=== PATIENT | male | born 2000 | race Hispanic/Latino ===

== ENCOUNTER 2019-10-09 20:34 | Emergency (ER) | payer OTHER, SELFPAY ==
[2019-10-09 20:40] VITALS: BP 125/58; PULSE 86; RESP 16; TEMP 36.2; O2SAT 96
--- NOTE | 2019-10-09 20:56 | ED.WOUNDLAC ---
HPI - Wound/Laceration General Chief Complaint: Wound/Laceration Stated Complaint: Laceration Time Seen by Provider: 10/09/19 20:53 Source: patient Mode of arrival: ambulatory Limitations: no limitations History of Present Illness HPI narrative: The pt is a 19 y/o male who presents to the ED c/o a laceration to the right eyebrow onset 1500. 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 He states that he stuck a crowbar under the floor and struck himself in the face with a board. He states that he is unsure of his last Tetanus. Pt notes that he occasionally smokes marijuana and cigarettes. Pt states that he does not have a PCP at this time. Onset (ago): hour(s) Location: face (Right eyebrow) Place: other (Boss' house) Context: accidental Associated symptoms: none Related Data Home Medications Medication Instructions Recorded Confirmed No Home Medications 10/09/19 10/09/19 Allergies Allergy/AdvReac Type Severity Reaction Status Date / Time No Known Allergies Allergy Verified 10/09/19 20:42 Review of Systems Review of Systems: All systems reviewed & are unremarkable except as noted in HPI and below Integumentary/Breasts: Skin/Breast: Reports other (Laceration to the right eyebrow) PMFSH Past Medical History Medical History (Updated 10/09/19 @ 22:39 by Cristina Pizarro MD) No significant past medical history Surgical History Surgical History (Updated 10/09/19 @ 20:58 by Raz Grimaldo) No history of previous surgery Social History Social History (Updated 10/09/19 @ 20:58 by Raz Grimaldo) Smoking status: Current some day smoker Substance use type: marijuana Exam Const: General: cooperative, no acute distress and alert Nutritional Appearance: well nourished Orientation/consciousness: patient oriented x3 Limitations: no limitations Eyes: Pupils: Equal, round and reactive pupils present Resp: Effort & Inspection: normal respiratory effort Skin: General skin exam: normal color Trauma: laceration (1 cm right eyebrow laceration with no bleeding) Neuro: General: patient oriented x3 Cognition (Neuro): normal cognition Speech: normal speech Extrem: General: normal to inspection, full ROM and no clubbing, cyanosis or edema Psych: Mental Status: mental status grossly normal Affect: normal affect Attitude: cooperative Course Course Emergency Course: Tetanus shot updated. Laceration repaired. Vital Signs Vital signs: Vital Signs Temperature 97.2 F L 10/09/19 20:40 Pulse Rate 86 10/09/19 20:40 Respiratory Rate 16 10/09/19 20:40 Blood Pressure 125/58 L 10/09/19 20:40 Pulse Oximetry 96 10/09/19 20:40 Temperature 97.2 F L 10/09/19 20:40 Pulse Rate 86 10/09/19 20:40 Respiratory Rate 16 10/09/19 20:40 Blood Pressure 125/58 L 10/09/19 20:40 Pulse Oximetry 96 10/09/19 20:40 Procedures Laceration Laceration 1: Site: face (Right eyebrow) Side (If applicable): right Size (cm): 1 Description: linear and clean Depth: simple, single layer Local Anesthetic: lidocaine 1% and with epi Pre-repair: irrigated ====== Skin Level ====== Skin layer closed with: prolene Size (cm): 5-0 Number of sutures: 3 Technique: simple, interrupted ====== Subcutaneous Layer ====== ====== Muscle Layer ====== ====== Tendon Layer ====== Critical Care Time Critical Care Time Critical Care Time: No Discharge Plan Discharge Clinical Impression: Laceration of right eyebrow Qualifiers: Encounter type: initial encounter Qualified Code(s): S01.111A - Laceration without foreign body of right eyelid and periocular area, initial encounter Patient Disposition: Home, Self-Care Condition: Stable Instructions: Care For Your Stitches (ED), Laceration (ED) Additional Instructions: Keep wound clean and dry. Do not soak wound, take baths, or swim
[2019-10-09] MEDS: TETANUS,DIPHTHERIA,AC PERTUSSIS ADULT 0.5 ML (ADACEL) IM (21:56)
== END 2019-10-09 22:50 | disposition home or self-care (01) ==
PROVIDERS: Emergency Provider Emergency Medicine
DX: S01.111A Laceration without foreign body of right eyelid and periocular area, initial encounter (principal); Z23 Encounter for immunization; F17.200 Nicotine dependence, unspecified, uncomplicated; W27.0XXA Contact with workbench tool, initial encounter
CPT/HCPCS: 12011; 90471; 90715; 99282

== ENCOUNTER 2020-07-29 09:38 | Emergency (ER) | payer OTHER, SELFPAY ==
--- NOTE | 2020-07-29 09:44 | ED.MALEGU ---
HPI - Male Genitourinary General Chief complaint: Urogenital-Male Stated complaint: POS UTI Time Seen by Provider: 07/29/20 09:44 Source: patient and RN notes reviewed History of Present Illness HPI Narrative: Patient is a 20-year-old male who presents the urgent care with complaints of a possible UTI. Patient states his symptoms started yesterday while he was at work. States that he felt like he really had to use the bathroom, had a lot of urinary frequency, and then felt like he was unable to urinate. Patient states that he has had some suprapubic pressure as well as a lot of burning with urination. Denies of any history of UTIs. Denies of any promiscuous activity that may suggest reason for STI. Denies of any penile discharge. Denies of fever, chills, nausea, vomiting, diarrhea. States that he did take Azo for his symptoms which seem to relieve some of the burning. No other acute complaints. No acute distress noted. Patient aware of the plan of care. Some parts of this dictation were generated by voice recognition software and may contain typographical and/or grammatical inaccuracies. Related Data Home Medications Medication Instructions Recorded Confirmed No Home Medications 10/09/19 10/09/19 Allergies Allergy/AdvReac Type Severity Reaction Status Date / Time No Known Allergies Allergy Verified 10/09/19 20:42 Review of Systems Review of Systems: Narrative: CONSTITUTIONAL: Denies fever, chills, or sweats. EYES: Denies visual changes, redness, or discharge. ENT: Denies rhinorrhea, congestion, sore throat, or otalgia. CARDIOVASCULAR: Denies chest pain, palpitations, or edema. RESPIRATORY: Denies cough or dyspnea. GASTROINTESTINAL: Denies abdominal pain, nausea, vomiting, or diarrhea. GENITOURINARY: Reports of dysuria, suprapubic pressure and urinary frequency SKIN: Denies rash or itching. MUSCULOSKELETAL: Denies back pain, joint pain, or myalgia. NEUROLOGIC: Denies headache, numbness, or weakness. All other systems reviewed are negative, except as documented in HPI. [facility] Past Medical History Medical History (Updated 07/29/20 @ 10:18 by BRIGHT Escobedo) No significant past medical history Surgical History Surgical History (Updated 10/09/19 @ 20:58 by Raz Grimaldo) No history of previous surgery Social History Social History (Updated 10/09/19 @ 20:58 by Raz Grimaldo) Smoking status: Current some day smoker Substance use type: marijuana Comments At the time of my signature, I reviewed and agree with the nursing past medical, surgical, social, and family history. There is no relevant family history pertinent to the patient complaint. Exam Narrative: Exam Narrative: GENERAL: This is a well-nourished, well-developed patient, in no apparent distress. HEAD: normocephalic, atraumatic. EYES: PERRL. Sclera clear/white. Vision is grossly intact. EARS: External ears normal NOSE: External nose normal with no obvious nasal discharge, nares without redness, no rhinorrhea. THROAT: Mucous membranes moist NECK: Neck supple GASTROINTESTINAL: Abdomen soft, non-tender, nondistended. SKIN: warm, intact with no suspicious lesions or rash, good texture and turgor. NEURO: awake, alert, and oriented to person, place and time. There were no obvious focal neurologic abnormalities. EXTREMITIES: No clubbing, cyanosis, or edema. BACK: Negative bilateral CVA tenderness Course Vital Signs Vital signs: Vital Signs Temperature 99.7 F H 07/29/20 09:50 Pulse Rate 75 07/29/20 09:50 Respiratory Rate 16 07/29/20 09:50 Blood Pressure 129/59 L 07/29/20 09:50 Pulse Oximetry 100 07/29/20 09:50 Temperature 99.7 F H 07/29/20 09:50 Pulse Rate 75 07/29/20 09:50 Respiratory Rate 16 07/29/20 09:50 Blood Pressure 129/59 L 07/29/20 09:50 Pulse Oximetry 100 07/29/20 09:50 Reviewed MDM - Male Genitourinary MDM Narrative Medical decision making narrative: Reviewed lab results
[2020-07-29 09:50] VITALS: BP 129/59; PULSE 75; RESP 16; TEMP 37.6; O2SAT 100
== END 2020-07-29 10:15 | disposition home or self-care (01) ==
PROVIDERS: Emergency Provider Nurse Practitioner Family
DX: R30.0 Dysuria (principal); F17.200 Nicotine dependence, unspecified, uncomplicated
CPT/HCPCS: 81003; 87491; 87591; 87661; 99213; G0463

== ENCOUNTER 2021-03-25 14:02 | Emergency (ER) | payer OTHER, SELFPAY ==
--- NOTE | ~2021-03-25 | XR_ITS ---
[XR_[id number] ] INDICATION: Right rib pain. TECHNIQUE: Frontal projection of the upper right ribs, frontal projection of the lower right ribs, ob lique projection of all the right ribs, frontal inspiratory chest x-ray for interpretation. FINDINGS: There are no displaced rib fractures identified. There are no soft tissue abnormality see n. The lungs are clear. IMPRESSION: 1:No displaced rib fractures. Reviewed, dictated and finalized at location A.
[2021-03-25 14:19] VITALS: BP 108/73; PULSE 66; RESP 16; TEMP 36.7; O2SAT 100
--- NOTE | 2021-03-25 15:29 | ED.ABDPAIN ---
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 Patient notes about a 1 to 2-day worsening 1 to 2-week history of right lower rib/RUQ abdominal discomfort. He recalls that the area was bruised at onset several weeks ago, yet can't remember specific event, stating' may been drinking'. It is worse with motion, palpation and better at rest. 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 Screening dip urine, and x-rays are noncontributory. Advised to follow-up in hospital, PMD for higher level testing if not improved Related Data Allergies Allergy/AdvReac Type Severity Reaction Status Date / Time No Known Allergies Allergy Verified 03/25/21 14:18 Review of Systems Review of Systems: General/Constitutional: No weight loss,fever Eyes: N0: Redness,discharge Ears/Nose/Throat: No: Epistaxis,ear discharge Respiratory: Denies: Hemoptysis Gastrointestinal: No Vomiting, Bleeding-rectal Skin: No Lumps, eruption Neurologic: No Focal Weakness,Sz Hematologic: Denies: Petechiae/Purpura Psychiatric: No: Suicida ideationl All Other Systems: Reviewed and Negative [facility] Past Medical History Medical History (Updated 03/25/21 @ 15:32 by Daren Ward MD) No significant past medical history Surgical History Surgical History (Updated 10/09/19 @ 20:58 by Raz Grimaldo) No history of previous surgery Social History Social History (Updated 10/09/19 @ 20:58 by Raz Grimaldo) Smoking status: Current some day smoker Substance use type: marijuana Comments At time of signature, agree with nursing past medical, surgical, social and family history. There is no relevant family history pertinent to the presenting complaint Exam Narrative: General Appearance: Well appearing,Conjunctiva clear Mouth/Throat: Normal appearing, Normal lips,: Supple Respiratory: Airway patent, No respiratory distress, CTA Cardiovascular: RRR, point tender right ribs T10-12 on the anterior midaxillary line Abdomen: Soft, Non-tender, No massess, No organomegaly (no rebound/ surgical signs), Hyperactive bowel sounds Musculoskeletal: Full ROM Skin: Warm, Dry Neurological: A&O x3, CN II-X intact Psychiatric: Normal mood, Normal affect Course Course Emergency Course: Films visualized, interpreted by radiologist, agree, normal see report Vital Signs Vital signs: Vital Signs Temperature 98.0 F 03/25/21 14:19 Pulse Rate 66 03/25/21 14:19 Respiratory Rate 16 03/25/21 14:19 Blood Pressure 108/73 03/25/21 14:19 Pulse Oximetry 100 03/25/21 14:19 Temperature 98.0 F 03/25/21 14:19 Pulse Rate 66 03/25/21 14:19 Respiratory Rate 16 03/25/21 14:19 Blood Pressure 108/73 03/25/21 14:19 Pulse Oximetry 100 03/25/21 14:19 MDM - Abdominal Pain Lab Data Labs: Urine Glucose Negative Reference Range: Negative Urine Bilirubin 1+ Reference Range: Negative Urine Ketone Negative Reference Range: Negative Urine Specific [place] 1.025 Reference Range:1.001-1.035 Urine Blood Negative Reference Range: Negative * * Urine pH 7.0 Reference Range: 5.0-9.0 Urine Protein Negative Reference Range: Negat
== END 2021-03-25 15:38 | disposition home or self-care (01) ==
PROVIDERS: Emergency Provider Emergency Medicine
DX: R07.89 Other chest pain (principal); F17.200 Nicotine dependence, unspecified, uncomplicated
CPT/HCPCS: 71101; 81003; 99213; G0463

== ENCOUNTER 2021-03-30 08:56 | Emergency (ER) | payer OTHER, SELFPAY ==
[2021-03-30] VITALS (8 sets, daily range): BP systolic 110–113; BP diastolic 60–68; PULSE 49–61; RESP 12–19; TEMP 36.8; O2SAT 98–100
--- NOTE | ~2021-03-30 | CT_ITS ---
EXAMINATION: CT abdomen pelvis w con EXAM DATE: 03/30/2021 10:51 INDICATION: Right upper quadrant pain. Positive Wilson's sign. TECHNIQUE: Spiral CT of the abdomen and pelvis was performed following intravenous injection of 100 m L Omnipaque 350. Axial, coronal and sagittal images of the abdomen and pelvis were reviewed. The do se-length product (DLP) for this examination was 225.87 mGy-cm. The exposure was tailored according to patient size (auto mA exposure control), and iterative reconstruction (ASIR) was used as additiona l dose reduction technique. Correlation is made to ultrasound earlier same date. FINDINGS: The liver, spleen, adrenal glands and pancreas are unremarkable. Gallbladder is unremarkab le. No biliary obstruction. Portal and splenic veins are patent. Kidneys enhance symmetrically. T here is no hydronephrosis. The prostate is unremarkable. The bladder is unremarkable. There is no retroperitoneal or pelvic lymphadenopathy. The appendix is normal. The stomach and small bowel are unremarkable. There is expected amount of c olonic stool. No free intraperitoneal gas. The heart is normal in size. There are no pericardial or pleural effusions. The lung bases are unremarkable. The bones are unremarkable. IMPRESSION: 1. No acute intra-abdominal findings. Reviewed, dictated and finalized at location B.
--- NOTE | ~2021-03-30 | US_ITS ---
EXAMINATION: US abdomen limited DATE: 03/30/2021 09:57 INDICATION: Right upper quadrant abdominal pain TECHNIQUE: Multiple grayscale and Doppler ultrasound images of the abdomen were obtained. COMPARISON: None FINDINGS: Pancreas is normal. Liver has normal echogenicity and contour, with a smooth surface. No liver lesion identified. No intrahepatic biliary duct dilation suspected. Portal venous flow was seen in the hepa topetal, normal direction and has normal Doppler waveform. The visualized proximal to mid inferior ve na cava is normal. Likely benign nonmobile 4 mm hypoechoic gallbladder polyp along the nondependent g allbladder wall. The gallbladder is otherwise normal in appearance. There is no shadowing cholelithi asis. The common bile duct measures 4 mm, which is normal. Sonographic Wilson sign was reported as po sitive by the travel [employer]. IMPRESSION: 1. Positive sonographic Wilson's sign without evident gallbladder wall thickening or cholelithiasis t o suggest acute cholecystitis. There is continued clinical concern for acute cholecystitis could cons ider HIDA scan for further evaluation. Reviewed, dictated and finalized at location A. IMPRESSION: 1. Positive sonographic Wilson's sign without evident gallbladder wall thickeni ng or cholelithiasis to suggest acute cholecystitis. There is continued clinica l concern for acute cholecystitis could consider HIDA scan for further evaluati on.
[2021-03-30 09:44] LABS: Basophils Absolute Auto 0.1 K/mm3 (0.0-0.1); Basophils Percent Auto 0.7 % (0.2-1.2); Eosinophils Absolute Auto 0.4 K/mm3 (0-0.3); Eosinophils Percent Auto 6.4 % (0-4.4); Hematocrit 44.3 % (42.0-52.0); Hemoglobin 15.1 g/dL (14.0-18.0); Immature Granulocyte Absolute 0.02 K/mm3 (0.00-0.031); Immature Granulocyte Percent A 0.3 % (0-0.5); Lymphocytes Absolute Auto 3.39 K/mm3 (0.9-3.2); Lymphocytes Percent Auto 50.4 % (18.3-44.2); Mean Corpuscular HGB Conc 34.1 g/dl (32-36); Mean Corpuscular Hemoglobin 30.8 pg (26-34); Mean Corpuscular Volume 90.2 fl (80-100); Mean Platelet Volume 10.1 fl (7.4-10.4); Monocytes Absolute Auto 0.5 K/mm3 (0.1-0.6); Neutrophils Absolute Auto 2.4 K/mm3 (1.3-6.7); Neutrophils Percent Auto 35.2 % (45.5-73.1); Platelet Count Result 187 k/mm3 (150-375); Red Blood Count 4.91 M/mm3 (4.6-6.20); Red Cell Distribution Width 12.1 % (11.5-14.5); White Blood Count 6.7 K/mm3 (4.5-10.0)
[2021-03-30 10:00] LABS: Alanine Aminotransferase 14 U/L (4-50); Albumin Level 3.9 g/dL (3.5-5.1); Alkaline Phosphatase 36 U/L (38-126); Anion Gap 3 mmol/L (8-16); Aspartate Amino Transferase 19 U/L (17-59); Bilirubin,Total 0.2 mg/dL (0.2-1.3); Blood Urea Nitrogen 13 mg/dL (9-20); Calcium 9.1 mg/dL (8.4-10.2); Carbon Dioxide 35 mmol/L (22-30); Chloride 100 mmol/L (98-107); Estimated CRCL calculation 122 ml/min; Estimated Glomerular Filt Rate > 60; Glucose 89 mg/dL (65-110); Lipase 169 U/L (23-300); Potassium 4.3 mmol/L (3.4-5.0); Sodium 138 mmol/L (137-145)
--- NOTE | 2021-03-30 10:13 | ED.GENADULT ---
HPI - General Adult General Chief complaint: Abdominal Pain Stated complaint: rt rib pain Time Seen by Provider: 03/30/21 09:12 Source: patient Mode of arrival: ambulatory Limitations: no limitations History of Present Illness HPI narrative: Patient presents with chief complaint of right upper quadrant abdominal pain that has been increasing over the past 2 weeks. He states that whenever he eats he feels nauseous and has worsening pain. Patient states that he has only been able to eat ice cream over the past 2 days because the symptoms of everything goes triggers worsening of his symptoms. Patient denies any fevers, vomiting, diarrhea, black or tarry stools. Patient denies any fever, shortness of breath, chest pain. Patient states that he drinks alcohol but has not drinking alcohol since Saturday. Patient denies known past gallbladder issues. He denies any abdominal surgeries. Patient denies any chronic medical conditions or daily medications. Related Data Allergies Allergy/AdvReac Type Severity Reaction Status Date / Time No Known Allergies Allergy Verified 03/25/21 14:18 Review of Systems Review of Systems: CONSTITUTIONAL: Denies fever, chills, or sweats. EYES: Denies visual changes, redness, or discharge. ENT: Denies rhinorrhea, congestion, sore throat, or otalgia. CARDIOVASCULAR: Denies chest pain, palpitations, or edema. RESPIRATORY: Denies cough or dyspnea. GASTROINTESTINAL: Reports right upper quadrant abdominal pain, nausea denies vomiting or diarrhea. GENITOURINARY: Denies dysuria or hematuria. SKIN: Denies rash or itching. MUSCULOSKELETAL: Denies back pain, joint pain, or myalgia. NEUROLOGIC: Denies headache, numbness, dizziness, or weakness. PSYCHIATRIC: Denies anxiety or depression. PMFSH Past Medical History Medical History (Updated 03/30/21 @ 12:40 by Leroy Chen PA-C) No significant past medical history Surgical History Surgical History (Updated 10/09/19 @ 20:58 by Raz Grimaldo) No history of previous surgery Social History Social History (Updated 10/09/19 @ 20:58 by Raz Grimaldo) Smoking status: Current some day smoker Substance use type: marijuana Exam Narrative: GENERAL: Well-appearing, well-nourished, and in no acute distress. HEAD: Normocephalic, atraumatic. EYES: PERRLA and EOMI. CHEST: Clear to auscultation. No respiratory distress. No wheezes rales or rhonchi HEART: Regular rate and rhythm. No murmur heard. Normal peripheral pulses. ABDOMEN: Soft, guarding and very tender to palpation to right upper quadrant. nondistended, normal active bowel sounds. EXTREMITIES: Normal range of motion. No edema. SKIN: Warm, dry, no rash. NEURO: No focal deficits. Alert and oriented x3. PSYCH: Normal mood and affect. Course Vital Signs Vital signs: Vital Signs Pulse Rate 60 03/30/21 09:13 Respiratory Rate 12 03/30/21 09:13 Pulse Oximetry 100 03/30/21 09:13 Temperature 98.3 F 03/30/21 09:22 Pulse Rate 61 03/30/21 09:30 Respiratory Rate 19 03/30/21 09:30 Blood Pressure 110/60 03/30/21 09:22 Pulse Oximetry 98 03/30/21 09:59 Medical Decision Making MDM Narrative Medical decision making narrative: Patient has not had vomiting, fever or unmanageable pain while in emergency department. CT and ultrasound are negative. I have offered to contact his primary care to discuss his symptoms and suggestion of HIDA scan outpatient however he does not want to wait and would like to be discharged home. Patient has been instructed to tailor his diet to avoid fatty greasy and spicy foods and triggers. He will be given anti-inflammatory and Zofran. Patient instructed not to drink alcohol as well. Patient strict to return to emergency department immediately if he has any emergent symptoms. Vital Signs Vital Signs: Vital Signs Pulse Rate 60 03/30/21 09:13 Respiratory Rate 12 03/30/21 09:13 Pulse Oximetry 100 03/30/21 09:13 Temperature 98.3
[2021-03-30 10:15] LABS: Add Urine Microscopic? YES; Appearance Urine Clear (Clear); Bilirubin Urine Negative (Negative); Blood Urine Negative (Negative); Color Urine Yellow (Yellow); Glucose Urine UA Negative (Negative); Ketones Urine Negative (Negative); Leukocyte Esterase Ur Trace LEU/UL (Negative); Mucus Urine Rare /lpf; Nitrate Urine Negative (Negative); Protein Urine Negative (Negative); RBC Urine 0-2 /hpf (0-2); Specific Grav Ur 1.019 (1.001-1.035); Urobilinogen Urine Negative mg/dL (<2.0)
[2021-03-30] MEDS: ONDANSETRON INJ 4 MG/2 ML VIAL IV PUSH (10:27)
[2021-03-30] MEDS: KETOROLAC 15 MG/ML VIAL (*BKC) IV PUSH (10:27)
== END 2021-03-30 14:22 | disposition home or self-care (01) ==
PROVIDERS: Physician Assistant; Emergency Provider Emergency Medicine; PCP Nurse Practitioner Family
DX: R10.11 Right upper quadrant pain (principal); F17.200 Nicotine dependence, unspecified, uncomplicated
CPT/HCPCS: 36415; 74177; 76705; 80053; 81001; 83690; 85025; 87086; 96374; 96375; 99284; J1885; J2405; Q9967

== ENCOUNTER 2021-05-10 06:33 | Outpatient (CLI) | payer OTHER, SELFPAY ==
--- NOTE | ~2021-05-10 | NM_ITS ---
EXAMINATION: NM hepatobiliary wo pharm DATE: 05/10/2021 09:18 INDICATION: Right upper quadrant abdominal pain. COMPARISON: CT abdomen and pelvis 03/30/2021, ultrasound 03/30/2021 TECHNIQUE: 4.9 mCi Tc-99m mebrofenin (Choletec) was administered intravenously. Scintigraphic images of the abdomen were obtained for one hour. Then, the patient drank 8 oz Ensure, and imaging was cont inued for 60 minutes. FINDINGS: There is normal clearance of radiotracer from the blood pool. There is homogeneous tracer u ptake by the liver. Activity progresses to the bowel and gallbladder. Gallbladder ejection fraction (GBEF) was 47%. Note that with this technique, normal GBEF >= 33%. IMPRESSION: 1. Normal hepatobiliary scintigraphy. Reviewed, dictated and finalized at location A.
== END 2021-05-10 06:34 | disposition home or self-care (01) ==
LOC: ANHIMG 06:34
PROVIDERS: PCP Nurse Practitioner Family; Visit Provider Nurse Practitioner Family
DX: R10.11 Right upper quadrant pain (principal)
CPT/HCPCS: 78226; A9537

== ENCOUNTER 2021-11-28 09:24 | Emergency (ER) | payer BC, SELFPAY ==
--- NOTE | 2021-11-28 10:14 | PC.NURSE ---
Pt not answering for triage x 2 - no answer at 0950 and no answer at 1014. Pt did not notify an RN of departure from ER. Pt has not been triaged at time of exit or seen leaving.
== END 2021-11-28 10:25 | disposition left against medical advice (07) ==
DX: Z53.21 Procedure and treatment not carried out due to patient leaving prior to being seen by health care provider (principal)
CPT/HCPCS: 99199

== ENCOUNTER 2021-11-28 10:08 | Emergency (ER) | payer BC, SELFPAY ==
--- NOTE | ~2021-11-28 | XR_ITS ---
EXAMINATION: XR_[id number]_CR DATE: 11/28/2021 10:39 INDICATION: Right lower rib pain. TECHNIQUE: A frontal view of the chest and 2 views on 3 radiographs of the right ribs were obtained. COMPARISON: Chest and right rib radiographs 03/25/2021, CT abdomen and pelvis 03/30/2021 FINDINGS: The chest demonstrates clear lungs without pneumonia, pleural effusion, or pneumothorax. Th e heart size is normal. There is heterotopic ossification of the right inferior costal cartilage, new from 03/30/2021, likely from old injury. IMPRESSION: 1. No rib fracture. 2. 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 Reviewed, dictated and finalized at location B. IMPRESSION: 1. No rib fracture. 2. 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
--- NOTE | ~2021-11-28 | XR_ITS ---
EXAMINATION: XR abdomen/kub 1V DATE: 11/28/2021 10:38 INDICATION: Constipation. TECHNIQUE: A supine view of the abdomen was obtained. COMPARISON: CT abdomen and pelvis 03/30/2021 FINDINGS: There are no dilated loops of bowel. There is a small volume of stool in the colon. IMPRESSION: 1. Normal bowel gas pattern. Reviewed, dictated and finalized at location B.
[2021-11-28 10:14] VITALS: BP 131/85; PULSE 71; RESP 16; TEMP 36.4; O2SAT 100
[2021-11-28 10:19] VITALS: BP 131/85; PULSE 71; RESP 16; TEMP 36.4; O2SAT 100
--- NOTE | 2021-11-28 10:19 | ED.ABDPAIN ---
HPI - Abdominal Pain General Chief Complaint: Abdominal Pain Stated Complaint: R SIDED ABD PAIN Time Seen by Provider: 11/28/21 10:10 Source: patient and RN notes reviewed History of Present Illness HPI narrative: Patient is a 21-year-old male who presents the urgent care with complaints of right abdominal pain. Patient was seen at the emergency room in March for the same complaint and had a complete work-up with a negative abdominal CT and HIDA scan. Patient states he does not notice any exacerbation of pain with eating. Patient states that he has increased pain with movement. Denies of any injury to the chest wall. Patient has not taken anything [id number] for his pain. Patient states he also notices on some increased urinary frequency and constipation. Patient states he vomits approximately 3 times per day. Currently denies of any nausea. No other acute complaints. No acute distress noted. Patient aware of the plan of care. Some parts of this dictation were generated by voice recognition software and may contain typographical and/or grammatical inaccuracies. Related Data Allergies Allergy/AdvReac Type Severity Reaction Status Date / Time No Known Allergies Allergy Verified 03/25/21 14:18 Review of Systems Review of Systems: CONSTITUTIONAL: Denies fever, chills, or sweats. EYES: Denies visual changes, redness, or discharge. ENT: Denies rhinorrhea, congestion, sore throat, or otalgia. CARDIOVASCULAR: Denies chest pain, palpitations, or edema. RESPIRATORY: Denies cough or dyspnea. GASTROINTESTINAL: Reports of vomiting, constipation, and right-sided abdominal pain GENITOURINARY: Reports of increased urinary frequency SKIN: Denies rash or itching. MUSCULOSKELETAL: Denies back pain, joint pain, or myalgia. NEUROLOGIC: Denies headache, numbness, or weakness. All other systems reviewed are negative, except as documented in HPI. [facility] Past Medical History Medical History (Updated 11/28/21 @ 11:05 by BRIGHT Escobedo) No significant past medical history Surgical History Surgical History (Updated 10/09/19 @ 20:58 by Raz Grimaldo) No history of previous surgery Social History Social History (Updated 10/09/19 @ 20:58 by Raz Grimaldo) Smoking status: Current some day smoker Substance use type: marijuana Comments At the time of my signature, I reviewed and agree with the nursing past medical, surgical, social, and family history. There is no relevant family history pertinent to the patient complaint. Exam Narrative: GENERAL: This is a well-nourished, well-developed patient, in no apparent distress. HEAD: normocephalic, atraumatic. EYES: PERRL. Sclera clear/white. Vision is grossly intact. EARS: External ears normal NOSE: External nose normal with no obvious nasal discharge, nares without redness, no rhinorrhea. THROAT: Mucous membranes moist NECK: Neck supple CARDIOVASCULAR: Regular rate and rhythm without murmurs, gallops, or rubs. RESPIRATORY: Lateral right chest tenderness, thoracic rib region. Clear to auscultation. Breath sounds equal bilaterally. No wheezes, rales, or rhonchi. GASTROINTESTINAL: Abdomen soft, diffuse abdominal tenderness more concentrated to the right upper and lower quadrant, nondistended. Bowel sounds are hypoactive. SKIN: warm, intact with no suspicious lesions or rash, good texture and turgor. NEURO: awake, alert, and oriented to person, place and time. There were no obvious focal neurologic abnormalities. EXTREMITIES: No clubbing, cyanosis, or edema. Course Course Level of Care: Express Care Visit Vital Signs Vital signs: Vital Signs Temperature 97.6 F 11/28/21 10:14 Pulse Rate 71 11/28/21 10:14 Respiratory Rate 16 11/28/21 10:14 Blood Pressure 131/85 11/28/21 10:14 Pulse Oximetry 100 11/28/21 10:14 Temperature 97.6 F 11/28/21 10:19 Pulse Rate 71 11/28/21 10:19 Respiratory Rate 16 11/28/21 10:19 Blood Pressure 131/85
== END 2021-11-28 11:10 | disposition home or self-care (01) ==
PROVIDERS: Emergency Provider Nurse Practitioner Family
DX: R11.11 Vomiting without nausea (principal)
CPT/HCPCS: 71101; 74018; 81003; 99213; G0463

== ENCOUNTER 2022-06-15 14:40 | Emergency (ER) | payer OTHER, SELFPAY ==
[2022-06-15] VITALS (7 sets, daily range): BP systolic 134–147; BP diastolic 68–87; PULSE 81–88; RESP 14–22; TEMP 36.4; O2SAT 98–100
--- NOTE | ~2022-06-15 | XR_ITS ---
XR hip LT min 3V w AP pelvis 06/15/2022 16:02 INDICATION: Left hip pain. Patient fell off roof. PROCEDURE: 4 views left hip COMPARISON: No prior studies for comparison. FINDINGS: Fracture, dislocation or subluxation is not identified. Pelvic rings are intact. The soft t issues appear within normal limits. No foreign bodies are identified. IMPRESSION: 1: NO ACUTE BONE OR JOINT ABNORMALITY IDENTIFIED. Reviewed, dictated and finalized at location A. 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
--- NOTE | ~2022-06-15 | XR_ITS ---
XR shoulder LT min 2V 06/15/2022 16:02 INDICATION: Left shoulder pain PROCEDURE: 4 views left shoulder COMPARISON: No prior studies for comparison. FINDINGS: Fracture, dislocation or subluxation is not identified. The soft tissues appear within norm al limits. No foreign bodies are identified. IMPRESSION: 1: NO ACUTE BONE OR JOINT ABNORMALITY IDENTIFIED. Reviewed, dictated and finalized at location A. 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
--- NOTE | ~2022-06-15 | CT_ITS ---
EXAMINATION: CT cervical spine wo con DATE: 06/15/2022 16:04 INDICATION: Fall from roof. TECHNIQUE: Computed tomography (CT) of the cervical spine was performed without intravenous contrast. Automated exposure control and iterative reconstruction technique were employed. Exam dose: 524.84 mGy-cm total exam DLP. COMPARISON: None FINDINGS: Normal cervical curvature is intact. C1 and C2 are normally aligned and the odontoid proces s is intact. No fracture or dislocation or locked facet or prevertebral soft tissue swelling. Cervica l interspaces are preserved.. IMPRESSION: Negative Reviewed, dictated and finalized at Location A. Reviewed, dictated and finalized at location B. L JOB TITLES IMPRESSION: Negative
--- NOTE | ~2022-06-15 | CT_ITS ---
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 Left-sided pain and weakness. TECHNIQUE: Computed tomography (CT) of the chest, abdomen, and pelvis was performed with 100 cc Omnip aque 350 intravenous contrast. The dose-length product was 921.98 mGy-cm. Automated exposure control and iterative reconstruction technique were employed. CT dated 03/30/2021 COMPARISON: None FINDINGS: CHEST CT: No significant vascular abnormality. No evidence for aortic aneurysm or dissection. No thoracic lymph adenopathy. No significant pleural or pericardial effusion. Heart size is normal. No endobronchial le sions. No focal airspace disease. No pneumothorax. No suspicious pulmonary nodules or masses. ABDOMEN/PELVIS CT: Fatty infiltration of the liver. The spleen is unremarkable. There are accessory splenules. The pancr eas, adrenal glands and kidneys are unremarkable. Gallbladder is present. Nonobstructive bowel gas pa ttern. No acute bone or joint abnormality. There is mild dextrocurvature of the thoracic spine. No fr ee air or free fluid. No significant vascular abnormality. No lymphadenopathy. Normal appendix. IMPRESSION: 1. No acute abnormality of the chest, abdomen or pelvis. Reviewed, dictated and finalized at location A. HOLDER
--- NOTE | ~2022-06-15 | CT_ITS ---
EXAMINATION: CT brain wo con DATE: 06/15/2022 16:03 INDICATION: Patient fell off of roof onto left side TECHNIQUE: Computed tomography (CT) of the head was performed without intravenous contrast. The mA wa s adjusted according to patient size. Iterative reconstruction technique was employed. Exam dose: 68 1.00 mGy-cm total exam DLP. COMPARISON: None FINDINGS: No intracranial mass lesion or hemorrhage or cerebrovascular accident is detected. No midli ne shift or mass effect. Normal amato-white matter differentiation. Normal ventricular size. No subdur al or epidural hematoma. Patchy opacification of ethmoid air cells bilaterally. Included paranasal sinuses and mastoid air gary ls are otherwise unremarkable. No fracture or bone destruction of the cranial vault. IMPRESSION: No skull fracture or acute intracranial finding Patchy opacification of bilateral ethmoid air cells Reviewed, dictated and finalized at Location A. Reviewed, dictated and finalized at location B. 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
--- NOTE | 2022-06-15 14:50 | PC.NURSE ---
C-collar place in triage.
--- NOTE | 2022-06-15 15:11 | ED.FALL ---
HPI - Fall General Chief Complaint: Fall Stated Complaint: fell from roof, left side pain History of Present Illness HPI Narrative: Patient is a 22-year-old male here for evaluation after falling off of a roof. Patient states that he was on a ladder getting down from the roof when he lost his footing, causing him to fall about 15 feet and landed on his left side. Patient denies loss of consciousness. States that his entire left side is hurting him, most notably in his left proximal humerus, left hip, low back. He has not taken any medicine for his pain. No incontinence or retention of bowel or bladder, saddle anesthesia, weakness. Related Data Allergies Allergy/AdvReac Type Severity Reaction Status Date / Time No Known Allergies Allergy Verified 06/15/22 14:41 Review of Systems Review of Systems: Gen: Denies fevers or chills Eyes: Denies eye pain or visual change ENT: Denies congestion Respiratory: Denies shortness of breath or cough CV: Denies chest pain or palpitations GI: Denies abdominal pain nausea, emesis or diarrhea denies burning, urgency, frequency or hematuria Musculoskeletal: Reports hip pain, back pain and neck pain Neuro: Denies numbness, tingling, weakness or focal weakness Skin: Denies rash Except as documented, all other systems reviewed and negative PMFSH Past Medical History Medical History No significant past medical history Surgical History Surgical History No history of previous surgery Social History Social History (Updated 10/09/19 @ 20:58 by Raz Grimaldo) Smoking status: Current some day smoker Substance use type: marijuana Exam Narrative: APPEARANCE: Well appearing, no pain in distress, well-nourished. Head: Normocephalic and atraumatic. EYES: PERRLA/EOMI, conjunctivae clear NOSE: No nasal drainage EARS: External ear normal in appearance THROAT: Oropharynx is clear. Mucous membranes are moist. NECK: C-collar in place. Supple. No adenopathy, no masses. RESPIRATORY: Equal breath sounds throughout. Airway patent, respirations nonlabored. Clear to auscultation bilaterally, no rales, rhonchi, wheezing. CARDIOVASCULAR: Regular rate and rhythm without murmurs, rubs, or gallops. ABDOMINAL: No bruising to abdomen. Normoactive bowel sounds. Soft, nontender, nondistended. No rebound tenderness or guarding. MUSCULOSKELETAL: Pelvis is stable. Extremities are warm and well-perfused. Moves all extremities well. No edema. NEURO: Normal speech. No focal neurologic deficits. SKIN: Skin is warm and dry. No rashes. PSYCHIATRIC: Normal affect/mood. Course Vital Signs Vital signs: Vital Signs Temperature 97.6 F 06/15/22 14:43 Pulse Rate 84 06/15/22 14:43 Respiratory Rate 14 06/15/22 14:43 Blood Pressure 147/83 H 06/15/22 14:43 Pulse Oximetry 99 06/15/22 14:43 Oxygen Delivery Room Air 06/15/22 14:43 Temperature 97.6 F 06/15/22 14:43 Pulse Rate 84 06/15/22 14:43 Respiratory Rate 14 06/15/22 14:43 Blood Pressure 147/83 H 06/15/22 14:43 Pulse Oximetry 99 06/15/22 14:43 Oxygen Delivery Room Air 06/15/22 15:05 MDM - Fall MDM Narrative Medical decision making narrative: 22-year-old male here via private vehicle for evaluation after a fall off of a roof, complaining of left-sided pain. At time of my evaluation ABCs intact, no acute distress, vital signs are normal. Patient was placed in a c-collar. Imaging of his chest abdomen pelvis, head and C-spine do not show any acute abnormalities. Plain films of his left hip and pelvis, left shoulder do not show any abnormalities. Patient was given pain meds in the ED with improvement of his symptoms, he continues to not show any focal neurologic deficits, signs or symptoms of spinal cord injury. He was able to ambulate without issue. Patient eager to go home, understands he i
[2022-06-15] MEDS: MORPHINE SULFATE (*CRX) 4 MG/ML INJ IV PUSH (15:24)
[2022-06-15 16:27] LABS: Estimated CRCL calculation 101 ml/min; Estimated Glomerular Filt Rate > 60
== END 2022-06-15 17:54 | disposition home or self-care (01) ==
PROVIDERS: Emergency Provider Physician Assistant
DX: S49.92XA Unspecified injury of left shoulder and upper arm, initial encounter (principal); S79.912A Unspecified injury of left hip, initial encounter; S39.92XA Unspecified injury of lower back, initial encounter; W13.2XXA Fall from, out of or through roof, initial encounter
CPT/HCPCS: 70450; 71260; 72125; 73030; 73502; 74177; 96374; 99284; J2270; Q9967

== ENCOUNTER → 2022-10-24 09:03 | Outpatient (CLI) | payer OTHER, SELFPAY ==
--- NOTE | ~2022-10-24 | US_ITS ---
Abdominal Sonogram: Real-time sonographic imaging of the abdomen was performed. Clinical History: Abdominal pain Findings: The liver appears normal with no evidence of mass lesion or bile duct dilatation. Main por jono vein demonstrates normal direction of flow. The spleen is normal in size without evidence of foca l lesion. The gallbladder is partially distended, and appears normal with no evidence of gallstone o r wall thickening. The common bile duct measures 4 mm. The visualized pancreas, aorta, and IVC are u nremarkable. The right kidney measures 10.2 cm in length and the left kidney measures 10.1 cm. Ther e is no hydronephrosis or renal calculus. Impression: Unremarkable abdominal ultrasound. Reviewed, dictated and finalized at location M. Impression: Unremarkable abdominal ultrasound.
== END ==
PROVIDERS: PCP Nurse Practitioner Family; Visit Provider Nurse Practitioner Family
DX: R10.9 Unspecified abdominal pain (principal)
CPT/HCPCS: 76700